=== PATIENT | male | born 1980 | race Caucasian/White ===

== ENCOUNTER → 2019-10-03 | Outpatient (CLI) | payer OTHER ==
--- NOTE | 2019-11-29 09:46 | REP ---
LEFT KNEE SERIES: HISTORY: Pain below patella. FINDINGS: 5-views of the left knee are performed. There is no fracture or dislocation. There is bilateral patellofemoral compartment narrowing. The joint spaces otherwise appear unremarkable. There is no joint effusion. IMPRESSION: Degenerative changes lateral patellofemoral joint. MTDD
== END ==
LOC: M WUC 08:55
PROVIDERS: ATTEND Physician Assistant
DX: S83.412A Sprain of medial collateral ligament of left knee, initial encounter (principal); X58.XXXA Exposure to other specified factors, initial encounter; Y92.89 Other specified places as the place of occurrence of the external cause; Y93.9 Activity, unspecified; Y99.9 Unspecified external cause status